=== PATIENT | female | born 1975 | race Caucasian/White ===

== ENCOUNTER 2022-12-28 13:36 | Outpatient (RCR) | payer OTHER, SELFPAY ==
--- NOTE | 2023-01-06 12:13 | OPREHPOC ---
Outpatient Therapy Plan of Care This is a Multidisciplinary Plan of Care that may contain components documented by all disciplines (PT, OT, and ST.) PT Problem 1 PT Problem #1 Knowledge Deficit PT Goal 1 Goal independent and compliant with HEP Target Visit 4 PT Problem 2 PT Problem #2 Pain PT Goal 1 Goal decrease pain at wors tto 4/10 or less Target Visit 8 PT Problem 3 PT Problem #3 Impaired Range of Motion PT Goal 1 Goal improve active lumbar flexion to ankles without pain improve active lumbar sidebending to 40 degrees without pain Target Visit 8 PT Problem 4 PT Problem #4 Impaired Functional Mobil PT Goal 1 Goal oswestry to display less than 20% functional deficits patient to sit through day without symptoms patient to sleep through the night 5 nights a week or more patient to display safe squat and lift mechanics of 40lbs to return to lifting at work/home PT Problem 5 PT Problem #5 Impaired Flexibility PT Goal 1 Goal 20 degees or less hamstrings tightness bilterally Target Visit 8
--- NOTE | 2023-01-06 12:14 | PTOPEVAL1 ---
Assessment and note entered by JT File, PT Evaluation Information Assessment Status Evaluation Diagnosis lower back pain, R side lower back pain Onset 11/25/22 Subjective Information patient reports she has been complaining to her MD about her back for years. she reports she has had chronic back pain for 13 years or more. she reports she knows she has recently herniated a disc. she reports she has not had an xray or mri of the lower back. she reports she has increased pain in the lower back with sitting and sleeping. she reports she has pain in the R side lower back. she reports she has symptoms into the R buttock. she reports when she hernitated her disc she was scooting a patient up in bed. 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 she reports she takes gabapentin and meloxicam for her symptoms. she reports she did try health care specialist 2x in the past. Assessment PT Clinical Summary mrs. almeida is a 47 yo woman who presents to skilled PT for evaluation and treatment of lower back and R LE pain. she presents today with decreased R LE strength, decreased lumbar rom, pain, and limited ability to sit/sleep comfortably . her symptoms indicated a discoid injury of the lower back during a lifting incident. she would benefit from continued skilled PT to improve her objective/functional deficits and return to her prior level functional activity performance/ quality of life. Plan of Care Interventions Electrical Stimulation,Hot Pack/Cold Pack,Manual Therapy,Mechanical Traction,Neuro Re-education, Patient/Caregiver Educati,Therapeutic Activities, Therapeutic Exercise PT Services Indicated Yes Treatment Frequency and 2x weekly for 8 visits Duration These treatments will address the objective and functional deficits as defined above. The patient will be advanced safely and appropriately in order for the patient to progress towards his/her prior level of function. Additional exercises will be introduced and as well as a comprehensive home exercise program upon discharge, if needed, ?to ensure carryover of functional gains achieved in the clinic. This treatment plan has been reviewed and agreement upon by the patient.
== END 2023-01-13 20:00 | disposition home or self-care (01) ==
LOC: CHSPT 13:36
DX: M54.9 Dorsalgia, unspecified (principal); G89.29 Other chronic pain
CPT/HCPCS: 97014; 97110; 97161; G0283